=== PATIENT | male | born 1985 | race Hispanic/Latino ===

== ENCOUNTER → 2019-01-30 | Outpatient (CLI) | payer OTHER ==
--- NOTE | 2019-01-30 08:26 | REP ---
MR LUMBAR SPINE WITHOUT CONTRAST: HISTORY: Back pain. Decreased signal intensity on T2-weighted images is present in the L4-5 intervertebral disc. The disc is decreased in height. These findings are consistent with disc degeneration. There is no disc bulge or herniation at the L1-2 and L5-S1 levels. The nerves exit the neural foramina without compression. A diffuse disc bulge is present at the L2-3 level. There is minimal compression of the thecal sac. The L2 nerves exit the neural foramina without compression. A diffuse disc bulge is present at the L3-4 level. There is minimal compression of the thecal sac. There is hypertrophy of the ligamenta flava and posterior articulating facets. The L3 nerves exit the neural foramina without compression. A diffuse disc bulge is present at the L4-5 level. There is minimal compression of the thecal sac. There is hypertrophy of the ligamenta flava and posterior articulating facets. The L4 nerves exit the neural foramina without compression. The conus medullaris is normal in appearance terminating at the level of the L1-2 intervertebral disc. Normal signal intensity is present in the lumbar vertebral bodies. IMPRESSION: Diffuse disc bulges at the L2-3 through L4-5 levels with minimal thecal sac compression. Electronically Signed by Ming Andujar MD 01/30/2019 08:30 A
== END ==
LOC: M RAD 07:07
PROVIDERS: ATTEND Family Medicine
DX: M51.26 Other intervertebral disc displacement, lumbar region (principal)

== ENCOUNTER 2019-03-10 05:35 | Emergency (ER) | payer OTHER ==
[~2019-03-10] VITALS: Ht 175.3 cm; Wt 96.4 kg
[2019-03-10] MEDS ORDERED: ADACEL/BOOSTRIX VACCINE (DIPHTH/PERTUSS/ACELL/TETANUS)0.5ML SYR (90715) IM ONE (07:30)
[2019-03-10] MEDS ORDERED: VITA-157 PO (07:36)
[2019-03-10] MEDS ORDERED: IBUP-359 PO (07:36)
[2019-03-10] MEDS ORDERED: VITAD1000T PO (07:36)
[2019-03-10] MEDS ORDERED: MELO15TA28 (07:36)
[2019-03-10] MEDS ORDERED: BACL1TAB8 PO (07:36)
[2019-03-10] MEDS ORDERED: METH750T2 PO (07:36)
[2019-03-10] MEDS ORDERED: PERC10TA26 PO (07:36)
[2019-03-10] MEDS ORDERED: FISH1000 PO (07:36)
--- NOTE | 2019-03-10 07:56 | REP ---
Left shoulder three views : There is no fracture or dislocation. Mineralization and joint spaces are normal. There are no calcifications or foreign bodies. Impression: Negative left shoulder . Electronically Signed by Masood Hebert MD 03/10/2019 07:48 A
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
[2019-03-10 09:45] VITALS: BP 122/76
== END 2019-03-10 10:03 | disposition home or self-care (01) ==
LOC: M ED 05:35
DX: S00.83XA Contusion of other part of head, initial encounter (principal); S40.012A Contusion of left shoulder, initial encounter; F10.120 Alcohol abuse with intoxication, uncomplicated; Y35.93XA Legal intervention, means unspecified, suspect injured, initial encounter; Y92.410 Unspecified street and highway as the place of occurrence of the external cause

== ENCOUNTER → 2019-09-17 | Outpatient (REF) | payer OTHER ==
[~2019-09-17] MED LIST: BACL1TAB8 PO; CHOL100029 PO; FISH1000 PO; IBUP-359 PO; MELO15TA28; METH750T2 PO; PERC10TA26 PO; VITA-157 PO
[2019-09-17 18:07] LABS: BLOOD UREA NITROGEN 12 MG/DL (7-18); CREATININE FOR GFR 1.12 MG/DL (0.70-1.30); GLOMERULAR FILTRATION RATE > 60.0 (>60); RHEUMATOID FACTOR QUANT < 10.0 IU/ML (<15.0)
[2019-09-17 18:14] LABS: FOLATE 10.3 NG/ML; VITAMIN B12 LEVEL 565 PG/ML
[2019-09-22 10:50] LABS: ALBUMIN % 59.7 % (55.8-66.1); ALPHA-1-GLOBULIN % 3.6 % (2.9-4.9); ALPHA-2-GLOBULINS % 8.3 % (7.1-11.8); BETA-1-GLOBULINS % 6.2 % (4.7-7.2); BETA-2-GLOBULINS % 5.1 % (3.2-6.5)
[2019-09-22 10:51] LABS: ALBUMIN 4.78 GM/DL (3.29-5.55); ALPHA-1-GLOBULINS 0.29 GM/DL (0.17-0.41); ALPHA-2-GLOBULINS 0.66 GM/DL (0.42-0.99); BETA-2-GLOBULINS 0.41 GM/DL (0.19-0.55); GAMMA GLOBULIN % 17.1 % (11.1-18.8); GAMMA GLOBULINS 1.37 GM/DL (0.65-1.58)
== END ==
LOC: M LABNEURO 16:50
PROVIDERS: ATTEND Psychiatry & Neurology Neurology
DX: R20.2 Paresthesia of skin (principal); M54.2 Cervicalgia